=== PATIENT | male | born 1970 | race Caucasian/White ===

== ENCOUNTER 2024-09-29 12:39 | Emergency (ER) | payer OTHER, SELFPAY ==
--- NOTE | 2024-09-29 12:41 | ED_ITS ---
HPI - Female Genitourinary General Stated complaint: Bladder Infection Time Seen by Provider: 09/29/24 12:40 Source: patient Mode of arrival: ambulatory Limitations: no limitations History of Present Illness HPI Narrative: Jean is a 54-year-old male patient presenting to the clinic today with complaints of a possible bladder infection. He reports he started having burning, frequency, and urgency with urination that started this morning and prior to coming into the clinic started having gross hematuria. He denies any fevers, chills, body aches. No flank pain or lower abdominal pain. Blood pressure was elevated in the clinic-patient has not taken his blood pressure medications in 2 months. Related Data Home Medications ?Medication ?Instructions ?Recorded ?Confirmed ?Last Taken ?Type No Home Medications 09/29/24 09/29/24 U nknown History Allergies Allergy/AdvReac Type Severity Reaction Status Date / Time No Known Allergies Allergy Verified 09/29/24 12:59 Review of Systems Review of Systems: Pertinent positives per HPI. Patient denies any fever, chills, rash, headache, visual changes, dizziness, cough, runny nose, sore throat, shortness of breath, chest pain, palpitations, nausea, vomiting, diarrhea, constipation, abdominal pain PMFSH Comments At the time of my signature, I reviewed and agree with the nursing past medical, surgical, social, and family history. There is no relevant family history pertinent to the patient complaint. Exam Narrative: General: Well-developed, well nourished, in no apparent distress. Head: Normocephalic, atraumatic. Cardio: Regular rate and rhythm, s1 and s2 normal, no murmur appreciated. Resp: Clear to auscultation bilaterally, no rhonchi, rales, wheezing or rubs. Abdomen: Soft, pliable, bowel sounds present in all quadrants, non-tender to palpation, no organomegly, no CVAT tenderness. : Deferred Course Course Emergency Course: Portions of this record may have been created with voice recognition software. Level of Care: Express Care Visit Vital Signs Vital signs: Vital signs reviewed MDM - Female Genitourinary MDM Narrative Medical decision making narrative: At the time of visit patient is resting comfortably on the exam table. Patient appears to be nontoxic. Complaints of a possible bladder infection. He reports he started having burning, frequency, and urgency with urination that started this morning and prior to coming into the clinic started having gross hematuria. He denies any fevers, chills, body aches. No flank pain or lower abdominal pain Labs: Urine has gross hematuria-UA dip skewed due to the amount of blood in the urine. Plan: I suspect patient has UTI symptoms with gross hematuria. Patient hypertensive in the clinic- has not taken his blood pressure medications in 2 months. History of kidney stones in the past. Recommend transfer to the ER for further evaluation. Patient agrees to transfer and would like to go to [place] [facility]. Contacted Dr. Arce at [facility] and he accepts patient for transfer. Differential Diagnosis Differential diagnosis: Likely urinary tract infection, cystitis and other (Gross hematuria) Discharge Plan Discharge Clinical Impression: Gross hematuria, Dysuria Patient Disposition: Acute Care Hospital Condition: Stable Instructions: Antibiotic Form Additional Instructions: Increase fluids and stay well hydrated Wipe front to back. May use wet wipes. Avoid tub baths If sexually active- pee before and after intercourse. Wear cotton panties Avoid tight clothing up against the genitals Follow up with your PCP in 1 week if symptoms persist. Patient Language: Belarusian Prescriptions: No Action No Home Medications Follow-up/Referrals: UNKNOWN,DOCTOR [Non-Staff] Time of Disposition: 13:00 Quality NIHSS Nursing Documentation ED NIHSS nursing documentation: reviewed/agree
--- OUTSIDE RECORDS SUMMARY | 2024-09-29 12:45 | XMS_ITS | Clinical Summary ---
Author Organization [facility] Address [address] [place] [address] Phone Care Team Providers Care Roller Die Cutting Machine Operator Name Role Phone Romana Disla NP Primary Care Provider + [phone] Allergies No known active allergies Medications rosuvastatin (CRESTOR) 20 MG tabletIndications:H yperlipidemia, unspecified hyperlipidemia type Take one tablet (20 mg total) by mouth one (1) time a day 90 tablet 3 4 Active irbesartan (AVAPRO) 300 MG tabletIndications:E ssential hypertension Take one tablet (300 mg total) by mouth nightly 90 tablet 3 4 Active pantoprazole (PROTONIX) [address] tabletIndications:G ERD without esophagitis Take one tablet (40 mg total) by mouth one (1) time a day 90 tablet 3 4 Active carvediloL (COREG) 25 MG tabletIndications:E ssential hypertension Take one tablet (25 mg total) by mouth in the morning and one tablet (25 mg total) in the evening. Take with meals. 180 tablet 3 4 Active Active Problems Patient Care Coordination No te Formatting of this note migh t be different from the original. EGD/Colonoscopy 01/25/2022 at 8:00 AM at [facility]. Prep instructions given to and reviewed with patient. Understanding voiced. Problem Noted Date Diagnosed Date Osteoarthritis 04/18/2023 Gastroesophageal reflux dise ase with esophagitis, unspecified whether hemorrhage 01/25/2022 Epigastric pain 11/19/2021 Overview (11/19/2021): Added automatically from request for surgery [id number] Prediabetes 09/09/2021 Left shoulder pain 09/09/2021 GERD without esophagitis 04/12/2021 Testicular swelling 02/17/2021 Nevus 12/24/2016 Hospital discharge follow-up 12/21/2016 Hyperlipidemia 12/21/2016 Acute appendicitis 12/08/2016 Malaise and fatigue 04/15/2016 Colon cancer screening 04/15/2016 Tachycardia 04/15/2016 Right shoulder pain 11/18/2015 Health care maintenance 06/10/2015 Essential hypertension 06/10/2015 Lung nodule Resolved Problems Problem Noted Date Diagnosed Date Resolved Date Diverticulitis of colon 04/23/201312/09 Family History Medical History Relation Name Comments Alcohol abuse Father Savage spencer sr Cancer Father Savage spencer sr Prostate cancer Father Savage spencer sr Throat cancer Father Savage spencer sr Alcohol abuse Mother Radha dang Melanoma Mother Radha dang Relation Name Status Comments Brother 1 Alive Brother 2 Alive Father Savage spencer sr Alive Mother Radha dang Alive Sister Alive Social History Tobacco Use Types Packs/Day Years Used Date Smoking Tobacco: Every Day Cigarettes 1 23 Smokeless Tobacco: Never Tobacco Cessation:Ready to Q uit: Not Asked; Counseling Given: Not Answered Alcohol Use Standard Drinks/Week Comments Yes 0 (1 standard drink = 0.6 oz pur e alcohol) rarely PHQ-2 Answer Date Recorded PHQ-2 Score 0 01/03/2023 Intimate Partner Safety Answer Date Rec orded Intimate Partner Safety Not At Risk 04/08/19 24 Intimate Partner Safety Not At Risk 04/08/19 24 Intimate Partner Safety Not At Risk 04/08/19 24 Intimate Partner Safety Not At Risk 04/08/19 24 Intimate Partner Safety Not At Risk 04/08/19 24 Sex and Gender Information Value Date Recorded Sex Assigned at Not on file Legal Sex Male 4:10 PM ASSEMBLY ROOM SUPERVISOR Gender Identity Not on file Sexual Orientation Not on file Last Filed Vital Signs Vital Sign Reading Time Taken Comments Blood Pressure 150/88 03/28/2024 11:08 AM ASSEMBLY ROOM SUPERVISOR Pulse 96 03/28/2024 11:07 AM ASSEMBLY ROOM SUPERVISOR Temperature 36.3 C (97.3 F) 03/28/2024 11:07 AM ASSEMBLY ROOM SUPERVISOR Respiratory Rate 16 01/25/2022 11:39 AM ASSEMBLY ROOM SUPERVISOR Oxygen Saturation 97% 03/28/2024 11:07 AM ASSEMBLY ROOM SUPERVISOR Inhaled Oxygen Concentration - - Weight 98.9 kg (218 lb) 03/28/2024 11:07 AM ASSEMBLY ROOM SUPERVISOR Height 172.7 cm (5' 8) 03/28/2024 11:07 AM ASSEMBLY ROOM SUPERVISOR Body Mass Index 33.15 03/28/2024 11:07 AM ASSEMBLY ROOM SUPERVISOR Plan of Treatment Health Maintenance Due Date Last Done Comments Colorectal Cancer Screening Annual FOBT/FIT Test 1971 Colorectal Cancer Screening Cologuard 1971 Colorectal Cancer Screening Flex Sigmoidoscopy 1971 DTap/Tdap/Td Vaccines (1 - Tdap) 1990 Pneumococcal Vaccine Age 50+ (1 of 2 - PCV) 1990 Zoster Vaccine (Shingles) (1 of 2) 2021 Colonoscopy Every 6 Months 07/26/2022 01/25/2022 Annual Depression Screening 2024 01/03/2023, 0 02/17/2021 Annual Physical 2024 01/03/2023, 04/15/2016 Lung Cancer Screening 01/11/2024 01/10/2023 , 10/26/2013, 03/05/2013 Flu Vaccine (#1) 10/08/2024 Colorectal CA Screen 10 Year Colonoscopy 01/26/2032 01/25/2022 Colorectal Cancer Screening 01/26/2032 01/25/2022 01/25/2022 01/25/2022 01/25/2022 01/25/2022 01/25/2022 Hepatitis C Antibody Screen Completed 01/03/2023 Procedures Procedure Name Priority Date/Time Associated Diagnosis Comments CT LDCT LUNG CANCER SCREENING Routine 01/10/2023 8:28 AM ASSEMBLY ROOM SUPERVISOR Cigarette nicotine dependence with other nicotine-induced disorder History of tobacco use HEPATITIS C VIRUS ANTIBODY Routine 01/03/2023 11:38 AM ASSEMBLY ROOM SUPERVISOR Need for hepatitis C screening test from Last 3 Months or Most Recently Relevant to Health Maintenance Results * CT LDCT Lung Cancer Screening (01/10/2023 8:28 AM ASSEMBLY ROOM SUPERVISOR) Anatomical Region Laterality Modality Chest Computed Tomogra phy 01/10/2023 10:0 7 AM ASSEMBLY ROOM SUPERVISOR Impressions 01/10/2023 10:15 AM ASSEMBLY ROOM SUPERVISOR IMPRESSION: ACR Required Coding: Lung RAD: Lung Rad 2S - Benign Recommendation:Annual LDCT screening Important incidental findings: Urinary artery disease For detailed description of ACR LungRADS categories please refer to: www.acr.org/Quality-Safety/Resources/LungRADS If you (or your patient) are a current smoker and would like assistance to quit smoking, the following resources are simple and free: www.[employer] https://ZenCard.gov https://smokefree.gov/qbycwatjr-lhwg-yuhkfmrjl-programs The images in this case were personally reviewed by the radiologist named below, and the report reflects his/her interpretation. Narrative 01/10/2023 10:15 AM ASSEMBLY ROOM SUPERVISOR INDICATION: High Risk Lung Cancer Screen. According to the electronic medical record, patient has a 62-[id number]-[id number] smoking history. COMPARISON: No existing relevant imaging studies are available TECHNIQUE: Non-contrast low dose helical acquisition through the lungs. Sliding slab MIP reformats. MPR sagittal reformats. Dose reduction techniques were utilized for this exam including automated exposure control, adjustments to mA and/or kV according to patient's size, and the use of iterative reconstruction techniques. FINDINGS: Global pulmonary findings: None Additional focal findings: Right upper lobe: No additional findings. Right middle lobe: No additional findings. Right lower lobe: No additional findings. Left upper lobe: Stable scarring of the lingula. Left lower lobe: No additional findings. Chest Wall/Mediastinum/Pericardium: Coronary artery disease. Ectasia of the aortic root measuring 4.0 cm. Central airways: No significant findings. Pleura: No significant findings. Visualized upper Abdomen: Diverticulosis. Procedure Note Arturo Verde MD - 01/10/2023 INDICATION: High Risk Lung Cancer Screen. According to the electronic medical record, patient has a 64-lbhc-eryf smoking history. COMPARISON: No existing relevant imaging studies are available TECHNIQUE: Non-contrast low dose helical acquisition through the lungs. Sliding slab MIP reformats. MPR sagittal reformats. Dose reduction techniques were utilized for this exam including automated exposure control, adjustments to mA and/or kV according to patient's size, and the use of iterative reconstruction techniques. FINDINGS: Global pulmonary findings: None Additional focal findings: Right upper lobe: No additional findings. Right middle lobe: No additional findings. Right lower lobe: No additional findings. Left upper lobe: Stable scarring of the lingula. Left lower lobe: No additional findings. Chest Wall/Mediastinum/Pericardium: Coronary artery disease. Ectasia of the aortic root measuring 4.0 cm. Central airways: No significant findings. Pleura: No significant findings. Visualized upper Abdomen: Diverticulosis. IMPRESSION: ACR Required Coding: Lung RAD: Lung Rad 2S - Benign Recommendation:Annual LDCT screening Important incidental findings: Urinary artery disease For detailed description of ACR LungRADS categories please refer to: www.acr.org/Quality-Safety/Resources/LungRADS If you (or your patient) are a current smoker and would like assistance to quit smoking, the following resources are simple and free: www.Urban[employer] https://ZenCard.gov https://ZenCard.gov/tyxtomrlx-fjia-bmsbghdot-programs The images in this case were personally reviewed by the radiologist named below, and the report reflects his/her interpretation. us Romana Disla NP CT IMG ORDERABLES Final Resu lt * Hepatitis C Virus Antibody (01/03/2023 11:38 AM ASSEMBLY ROOM SUPERVISOR) Hepatitis C Virus Antibody Negative Negative 2023 6:59 AM ASSEMBLY ROOM SUPERVISOR [facility] Comment: Unless otherwise indicated, all testing performed at: [facility] [address] [place] [address] Trouble Dispatcher: Lynnette Baker M.D. [facility]# [id number] Blood Venipuncture / Unknown 01/03/2023 11:38 AM ASSEMBLY ROOM SUPERVISOR 01/03/2023 11:39 AM ASSEMBLY ROOM SUPERVISOR us Romana Disla NP LAB BLOOD ORDERABLES Final R esult [facility] [address] [place] [id number], [place] [phone] from Last 3 Months or Most Recently Relevant to Health Maintenance Insurance [employer] Advance Directives For more information, please contact: [phone] (7AM - 5PM [facility], 7 days a week) * Full Code (Latest Code Status on File) Date Activated Date Inactivated Comments 12/08/2016 2:54 PM 12/09/2016 4:14 PM * Full Code Date Activated Date Inactivated Comments 12/08/2016 9:44 AM 12/08/2016 2:54 PM Care Teams Roller Die Cutting Machine Operator Relationship Specialty Start Date End Date Romana Disla NP [address] [place] [id number] PCP - General Nurse Practitioner 01/03/23
--- OUTSIDE RECORDS SUMMARY | 2024-09-29 12:46 | XMS_ITS | Encounter Summary ---
Author Organization [facility] Address [address] [place] [address] Phone Care Team Providers Care Bottom Turner Name Role Phone Ida Zamarripa CHAIRMAN CEO Primary Care Provider [phone] Mk Velez MD Primary Care Provider [phone] Romana Disla CHAIRMAN CEO Primary Care Provider + [phone] Encounter Details Date Type Department Care Team (Late st Contact Info) Description 06/03/2016 Documentation [facility] [place] Neuro-Sleep Disorder [address] [facility] [place], [place] [id number] Richy Upton [address] [facility] [place], [place] [id number] Social History Tobacco Use Types Packs/Day Years Used Date Smoking Tobacco: Every Day Cigarettes 1 23 Alcohol Use Standard Drinks/Week Comments Yes 0 (1 standard drink = 0.6 oz pur e alcohol) Sex and Gender Information Value Date Recorded Sex Assigned at Not on file Legal Sex Male 4:10 PM SOUND EQUIPMENT MECHANIC Gender Identity Not on file Sexual Orientation Not on file documented as of this encounter Plan of Treatment Not on file documented as of this encounter Visit Diagnoses Not on filedocumented in this encounter Additional Health Concerns Infection Onset Date Last Indicated Resolved Time COVID-19: Pending 03/02/2021 03/02/2021 03/02/2021 9:33 PM SOUND EQUIPMENT MECHANIC Assessment Noted Time PHQ-9 Depression Total Score: 0 06/01/19 17 8:32 PM CDT A fall risk assessment has been complete d for the patient 05/31/2016 7:31 AM CDT documented as of this encounter Care Teams Bottom Turner Relationship Specialty Start Date End Date Ida Zamarripa, CHAIRMAN CEO [address], [address] [place] [address] PCP - General Family Medicine 09/28/16 02/02/21 Mk Velez MD [address] [facility] [place], [address] PCP - General Family Medicine 02/03/21 01/02/23 Romana Disla, JANICE [address] [facility] [address] [place], [address] PCP - General Nurse Practitioner 01/03/23 documented as of this encounter
--- OUTSIDE RECORDS SUMMARY | 2024-09-29 12:46 | XMS_ITS | Encounter Summary ---
Author Organization [facility] Address [address] [place] [address] Phone Care Team Providers Care Toolmaker Helper Name Role Phone Ida Zamarripa GAME TRAPPER Primary Care Provider [phone] Mk Velez MD Primary Care Provider [phone] Romana Disla GAME TRAPPER Primary Care Provider + [phone] Encounter Details Date Type Department Care Team (Late st Contact Info) Description 06/03/2016 Documentation [facility] [place] Neuro-Sleep Disorder [address] [facility] [place], [place] [id number] Richy Upton [address] [facility] [place], [place] [id number] Social History Tobacco Use Types Packs/Day Years Used Date Smoking Tobacco: Every Day Cigarettes 1 23 Alcohol Use Standard Drinks/Week Comments Yes 0 (1 standard drink = 0.6 oz pur e alcohol) Sex and Gender Information Value Date Recorded Sex Assigned at Not on file Legal Sex Male 4:10 PM SEPTIC TECHNICIAN Gender Identity Not on file Sexual Orientation Not on file documented as of this encounter Plan of Treatment Not on file documented as of this encounter Visit Diagnoses Not on filedocumented in this encounter Additional Health Concerns Infection Onset Date Last Indicated Resolved Time COVID-19: Pending 03/02/2021 03/02/2021 03/02/2021 9:33 PM SEPTIC TECHNICIAN Assessment Noted Time PHQ-9 Depression Total Score: 0 06/01/19 17 8:32 PM CDT A fall risk assessment has been complete d for the patient 05/31/2016 7:31 AM CDT documented as of this encounter Care Teams Toolmaker Helper Relationship Specialty Start Date End Date Ida Zamarripa, GAME TRAPPER [address] [place] [address] PCP - General Family Medicine 09/28/16 02/02/21 Mk Velez MD [address] [facility] [place], [address] PCP - General Family Medicine 02/03/21 01/02/23 Romana Disla, JANICE [address] [facility] [address] [place], [address] PCP - General Nurse Practitioner 01/03/23 documented as of this encounter
[2024-09-29 12:49] VITALS: BP 164/118; PULSE 105; RESP 18; TEMP 36.4; O2SAT 99
[2024-09-29 12:58] LABS: EDUAAPPEAR Cloudy; EDUABILI 3+ (Negative); EDUABLOOD 3+ (Negative); EDUACOLOR1 Red; EDUAGLUCOSE Negative (Negative); EDUAKETONE 1+ (Negative); EDUALEUKO 3+ (Negative); EDUANITRATE Positive (Negative); EDUAPH 6.0; EDUAPROTEIN 3+ (Negative); EDUASPGRAVITY 1.020; EDUAUROBILI 2.0
== END 2024-09-29 13:05 | disposition short-term general hospital (02) ==
PROVIDERS: Emergency Provider Nurse Practitioner Family
DX: R31.0 Gross hematuria (principal); R30.0 Dysuria; I10 Essential (primary) hypertension; E78.00 Pure hypercholesterolemia, unspecified; K21.9 Gastro-esophageal reflux disease without esophagitis; Z86.16 Personal history of COVID-19; Z98.52 Vasectomy status
CPT/HCPCS: 81003; 99202; G0463

== ENCOUNTER 2024-09-29 13:24 | Emergency (ER) | payer OTHER, SELFPAY ==
[2024-09-29] VITALS (7 sets, daily range): BP systolic 173–193; BP diastolic 103–110; PULSE 108; RESP 20; TEMP 36.4; O2SAT 98–100
--- NOTE | ~2024-09-29 | CT_ITS ---
EXAMINATION: CT abdomen pelvis wo con DATE: 09/29/2024 14:28 INDICATION: Flank pain and hematuria TECHNIQUE: Computed tomography (CT) of the abdomen and pelvis was performed without intravenous contrast. The dose-length product was 312.98 mGy-cm. Automated exposure control and iterative reconstruction technique were employed. COMPARISON: None. FINDINGS: Lung bases unremarkable. Heart size normal. No significant pleural or pericardial effusion. The liver, spleen, pancreas, adrenal glands and kidneys are unremarkable. Gallbladder is present. Nonobstructive bowel gas pattern. Colonic diverticulosis without evidence for diverticulitis. No abnormal pelvic masses or fluid collections. There is a right hydrocele. Nonobstructive bowel pattern. No free air or free fluid. No renal/ureteral stones or hydronephrosis. No acute osseous abnormality. IMPRESSION: 1. No acute abdominal abnormality. Reviewed, dictated and finalized at location O.
--- OUTSIDE RECORDS SUMMARY | 2024-09-29 13:26 | XMS_ITS | Encounter Summary ---
Author Organization [facility] Address [address] [place] [address] Phone Care Team Providers Care Desk Operator Name Role Phone Ida Zamarripa NISSAN SALES CONSULTANT Primary Care Provider [phone] Mk Velez MD Primary Care Provider [phone] Romana Disla NISSAN SALES CONSULTANT Primary Care Provider + [phone] Encounter Details Date Type Department Care Team (Late st Contact Info) Description 06/03/2016 Documentation [facility] [place] Neuro-Sleep Disorder [address] [facility] [place], [place] [id number] Richy Upton [address] [facility] [place], [place] [id number] Social History Tobacco Use Types Packs/Day Years Used Date Smoking Tobacco: Every Day Cigarettes 1 23 Alcohol Use Standard Drinks/Week Comments Yes 0 (1 standard drink = 0.6 oz pur e alcohol) Sex and Gender Information Value Date Recorded Sex Assigned at Not on file Legal Sex Male 4:10 PM REFRIGERATION INSULATOR Gender Identity Not on file Sexual Orientation Not on file documented as of this encounter Plan of Treatment Not on file documented as of this encounter Visit Diagnoses Not on filedocumented in this encounter Additional Health Concerns Infection Onset Date Last Indicated Resolved Time COVID-19: Pending 03/02/2021 03/02/2021 03/02/2021 9:33 PM REFRIGERATION INSULATOR Assessment Noted Time PHQ-9 Depression Total Score: 0 06/01/19 17 8:32 PM CDT A fall risk assessment has been complete d for the patient 05/31/2016 7:31 AM CDT documented as of this encounter Care Teams Desk Operator Relationship Specialty Start Date End Date Ida Zamarripa, NISSAN SALES CONSULTANT [address] [place] [address] PCP - General Family Medicine 09/28/16 02/02/21 Mk Velez MD [address] [facility] [place], [address] PCP - General Family Medicine 02/03/21 01/02/23 Romana Disla, JANICE [address] [facility] [address] [place], [address] PCP - General Nurse Practitioner 01/03/23 documented as of this encounter
--- OUTSIDE RECORDS SUMMARY | 2024-09-29 13:27 | XMS_ITS | Encounter Summary ---
Author Organization [facility] Address [address] [place] [address] Phone Care Team Providers Care Cash Register Servicer Name Role Phone Ida Zamarripa INTERNATIONAL EDITORIAL PRODUCER Primary Care Provider [phone] Mk Velez MD Primary Care Provider [phone] Romana Disla INTERNATIONAL EDITORIAL PRODUCER Primary Care Provider + [phone] Encounter Details Date Type Department Care Team (Late st Contact Info) Description 06/03/[address] [facility] [place] Neuro-Sleep Disorder [address] [facility] [place], [place] [id number] Richy Upton [address] [facility] [place], [place] [phone] Social History Tobacco Use Types Packs/Day Years Used Date Smoking Tobacco: Every Day Cigarettes 1 23 Alcohol Use Standard Drinks/Week Comments Yes 0 (1 standard drink = 0.6 oz pur e alcohol) Sex and Gender Information Value Date Recorded Sex Assigned at Not on file Legal Sex Male 4:10 PM OIL SPOT WASHER Gender Identity Not on file Sexual Orientation Not on file documented as of this encounter Plan of Treatment Not on file documented as of this encounter Visit Diagnoses Not on filedocumented in this encounter Additional Health Concerns Infection Onset Date Last Indicated Resolved Time COVID-19: Pending 03/02/2021 03/02/2021 03/02/2021 9:33 PM OIL SPOT WASHER Assessment Noted Time PHQ-9 Depression Total Score: 0 06/01/19 17 8:32 PM CDT A fall risk assessment has been complete d for the patient 05/31/2016 7:31 AM CDT documented as of this encounter Care Teams Cash Register Servicer Relationship Specialty Start Date End Date Ida Zamarripa, INTERNATIONAL EDITORIAL PRODUCER [address], [address] [place] [address] PCP - General Family Medicine 09/28/16 02/02/21 Mk Velez MD [address] [facility] [place], [address] PCP - General Family Medicine 02/03/21 01/02/23 Romana Disla, JANICE [address] [facility] [address] [place], [address] PCP - General Nurse Practitioner 01/03/23 documented as of this encounter
[2024-09-29 14:03] LABS: Hematocrit 51.5 % (42.0-52.0); Hemoglobin 16.9 g/dL (14.0-18.0); Immature Granulocyte Percent A 0.3 % (0-0.5); Lymphocytes Absolute Auto 1.67 K/mm3 (0.9-3.2); Mean Corpuscular HGB Conc 32.8 g/dl (32-36); Mean Corpuscular Hemoglobin 29.2 pg (26-34); Mean Corpuscular Volume 88.9 fl (80-100); Nucleated Red Blood Cells Absolute Auto 0.000 K/mm3 (0.0-0.012); Nucleated Red Blood Cells Perc 0.0 % (0.0-0.2); Platelet Count Result 205 k/mm3 (150-375); Red Blood Count 5.79 M/mm3 (4.6-6.20); White Blood Count 14.5 K/mm3 (4.5-10.0)
[2024-09-29 14:11] LABS: Alanine Aminotransferase 34 U/L (6-50); Albumin Level 4.7 g/dL (3.5-5.1); Alkaline Phosphatase 95 U/L (38-126); Anion Gap 7 mmol/L (4-12); Aspartate Amino Transferase 36 U/L (17-59); Bilirubin,Total 1.1 mg/dL (0.2-1.3); Blood Urea Nitrogen 14 mg/dL (9-20); Calcium 9.2 mg/dL (8.4-10.2); Carbon Dioxide 28 mmol/L (22-30); Chloride 101 mmol/L (98-107); Estimated CRCL calculation 92 ml/min; Estimated Glomerular Filt Rate > 60; Glucose 104 mg/dL (65-110); Potassium 4.2 mmol/L (3.4-5.0); Sodium 136 mmol/L (137-145); Total Protein 8.1 g/dL (6.3-8.2)
[2024-09-29 14:20] LABS: Appearance Urine Turbid (Clear)
[2024-09-29 14:21] LABS: Glucose Urine UA Negative (Negative); Specific Grav Ur >= 1.030 (1.001-1.035)
[2024-09-29 14:22] LABS: Add Urine Microscopic? YES; Leukocyte Esterase Ur Negative LEU/UL (Negative); Nitrate Urine Negative (Negative)
--- NOTE | 2024-09-29 14:42 | ED.MALEGU ---
HPI - Male Genitourinary General Chief complaint: Urogenital-Male Stated complaint: hematuria w/ clots, no thinners Time Seen by Provider: 09/29/24 14:06 History of Present Illness HPI Narrative: 54-year-old male presents with blood in his urine and passing clots that started this morning. Patient states he is having bladder pressure and polyuria. Patient states he had kidney stones 30+ years ago with no interventions. Patient complaining of lower back pain but denies flank pain. Patient denies any chance of STDs. No other complaints Onset (ago): hour(s) (Six) Related Data Allergies Allergy/AdvReac Type Severity Reaction Status Date / Time No Known Allergies Allergy Verified 09/29/24 13:28 Review of Systems Review of Systems: A 10 system review of systems was completed on the patient and is negative except for what is stated in the HPI. Nursing and ancillary documentation was reviewed. Exam Narrative: GENERAL: Well-appearing, well-nourished, and in no acute distress. HEAD: Normocephalic, atraumatic. EYES: PERRLA and EOMI. ENT: Nares clear, no rhinorrhea or epistaxis. Mucous membranes moist. NECK: Supple. CHEST: Clear to auscultation. No respiratory distress. HEART: Regular rate and rhythm. No murmur heard. Normal peripheral pulses. ABDOMEN: Soft, nontender, nondistended, normal active bowel sounds. EXTREMITIES: Normal range of motion. No edema. SKIN: Warm, dry, no rash. NEURO: No focal deficits. Alert and oriented x3. PSYCH: Normal mood and affect. BACK: tenderness to lower back Course Course Emergency Course: Will get labs, urine, CT abdomen pelvis without contrast to rule out kidney stone Patient has elevated blood pressure. Patient states he just moved to the area has been out of his blood pressure medicine for 2 months. Patient states he does not have a primary care. Requesting referral to a primary care doctor Reevaluation(s) Reevaluation #1: Patient states she is feeling better Date: 09/29/24 Time: 15:45 Vital Signs Vital signs: Vital Signs Temperature 36.4 C 09/29/24 13:30 Pulse Rate 108 H 09/29/24 13:30 Respiratory Rate 20 09/29/24 13:30 Blood Pressure 193/110 H 09/29/24 13:30 Pulse Oximetry 99 09/29/24 13:30 Oxygen Delivery Room Air 09/29/24 13:30 Temperature 36.4 C 09/29/24 13:30 Pulse Rate 108 H 09/29/24 13:30 Respiratory Rate 20 09/29/24 13:30 Blood Pressure 173/103 H 09/29/24 15:55 Pulse Oximetry 98 09/29/24 14:47 Oxygen Delivery Room Air 09/29/24 13:30 MDM - Male Genitourinary MDM Narrative Medical decision making narrative: Patient's labs showed elevated white count with no signs of infection. Patient care shows large amount of blood. Patient likely passed a kidney stone. CT scan was negative. Urine is noninfected. We will treat with Toradol and referred to Urology Differential Diagnosis Differential diagnosis: Likely urinary tract infection, prostatitis and other (Kidney stone) Lab Data 09/29/24 13:51 09/29/24 13:51 Labs: Lab Results 09/29/24 09/29/24 Range/Units 13:51 14:51 WBC 14.5 H (4.5-10.0) K/mm3 RBC 5.79 (4.6-6.20) M/mm3 Hgb 16.9 (14.0-18.0) g/dL Hct 51.5 (42.0-52.0) % MCV 88.9 (80-100) fl MCH 29.2 (26-34) pg MCHC 32.8 (32-36) g/dl RDW 13.2 (11.5-14.5) % Plt Count 205 (150-375) k/mm3 MPV 9.9 (7.4-10.4) fl Immature Gran % (Auto) 0.3 (0-0.5) % Neut % (Auto) 81.8 H (45.5-73.1) % Lymph % (Auto) 11.5 L (18.3-44.2) % Phelps % (Auto) 4.8 (2.6-8.5) % Eos % (Auto) 1.2 (0-4.4) % Baso % (Auto) 0.4 (0.2-1.2) % Lymph # (Auto) 1.67 (0.9-3.2) K/mm3 Phelps # (Auto) 0.7 H (0.1-0.6) K/mm3 Eos # (Auto) 0.2 (0-0.3) K/mm3 Baso # (Auto) 0.1 (0.0-0.1) K/mm3 Abs Immat Gran (auto) 0.05 H (0.00-0.031) K/mm3 Absolute Neuts (auto) 11.9 H (1.3-6.7) K/mm3 Absolute Nucleated RBC 0.000 (0.0-0.012) K/mm3 Nucleated RBC % 0.0 (0.0-0.2) % Sodium 136 L (137-145) mmol/L Potassium 4.2 (3.4-5.0) mmol/L Chloride 101 (98-107) mmol/L Carbon Dioxide 28 (22-30) mmol/L Anion Gap 7 (4-12) mmol/L BUN 14 (9-20) mg/dL Creatinine 0.91 (0.7-1.3) mg/dL Estim Creat Clear Calc 92 ml/min Estimated GFR > 60 (59 - ) Glucose 104 (65-110) mg/dL Lactic Acid 0.9 (0.7-2.0) mmol/L Calcium 9.2 (8.4-10.2) mg/dL Total Bilirubin 1.1 (0.2-1.3) mg/dL AST 36 (17-59) U/L ALT 34 (6-50) U/L Alkaline Phosphatase 95 (38-126) U/L Total Protein 8.1 (6.3-8.2) g/dL Albumin 4.7 (3.5-5.1) g/dL Prostate Specific Ag 2.3 (< OR = 4.0) ng/mL Urine Color Red H (Yellow) Urine Appearance Turbid H (Clear) Urine pH 6.5 (5.0-9.0) Ur Specific [place] >= 1.030 (1.001-1.035) Urine Protein 3+ H (Negative) mg/dL Urine Glucose (UA) Negative (Negative) mg/dL Urine Ketones Negative (Negative) mg/dL Ur Blood (Man) 2+ H (Negative) Urine Nitrate Negative (Negative) Urine Bilirubin Negative (Negative) Urine Urobilinogen 0.2 (<2.0) mg/dL Leukocyte Esterase Rfl Negative (Negative) SERVANDO/UL Urine RBC >100 H (0-2) /hpf Urine WBC 0-5 (0-3) /hpf Ur Squamous Epith Cells None seen (Few) /hpf Urine Bacteria Trace (None) /hpf Imaging Data Radiologist's impression: Negative CT exam Discharge Plan Discharge Clinical Impression: Hematuria, Kidney stone Patient Disposition: Home Condition: Improved Instructions: Antibiotic Form, Kidney Stones (ED), Hematuria (ED), Hypertension (ED) Additional Instructions: TAKE MEDICATIONS PRESCRIBED INCREASE CLEAR FLUIDS FOLLOW-UP WITH UROLOGY Patient Language: Polish Prescriptions: New ketorolac 10 mg tablet 10 mg PO Q6H PRN (Reason: pain) Qty: 14 0RF Rx Instructions: maximum total duration of 5 days from all oral, intranasal, or parenteral formulations valsartan 160 mg tablet 160 mg PO DAILY Qty: 14 0RF Follow-up/Referrals: PHYSICIAN,SOFTWARE QUALITY ENGINEER [Primary Care Provider, Internal Medicine] Terrence Moreland MD [Physician, Family Practice] - 2 Days Time of Disposition: 16:10
[2024-09-29] MEDS: KETOROLAC 30 MG/ML VIAL (*BKC) IV PUSH (14:58)
[2024-09-29] MEDS: SODIUM CHLORIDE 0.9% IV 1,000 ML 999 ML IV CONT (14:58)
[2024-09-29 15:57] LABS: Prostate Specific Antigen 2.3 ng/mL (< OR = 4.0)
== END 2024-09-29 16:25 | disposition home or self-care (01) ==
PROVIDERS: Emergency Medicine; Emergency Provider Nurse Practitioner Family
DX: N20.0 Calculus of kidney (principal); R31.9 Hematuria, unspecified; I10 Essential (primary) hypertension; Z87.442 Personal history of urinary calculi
CPT/HCPCS: 36415; 74176; 80053; 81001; 83605; 84153; 85025; 96361; 96374; 99284; J1885; J7030

== ENCOUNTER 2024-10-02 05:27 | Emergency (ER) | payer OTHER, SELFPAY ==
[2024-10-02 05:35] VITALS: BP 214/105; PULSE 118; RESP 17; TEMP 37; O2SAT 100
[2024-10-02 05:55] LABS: Add Urine Microscopic? YES; Appearance Urine Cloudy (Clear); Glucose Urine UA Negative (Negative); Leukocyte Esterase Ur 3+ LEU/UL (Negative); Nitrate Urine Positive (Negative); Non Pathogenic Casts 0-2; Specific Grav Ur 1.014 (1.001-1.035)
[2024-10-02] MEDS: KETOROLAC 30 MG/ML VIAL (*BKC) 15 MG IM (06:00)
--- NOTE | 2024-10-02 06:18 | ED_ITS ---
HPI - General Adult General Chief complaint: Urogenital-Male Stated complaint: kidney stones - worsening pain, costa Time Seen by Provider: 10/02/24 05:29 History of Present Illness HPI narrative: Patient is a 54-year-old male who presents emergency department this evening complaining of increased urge to urinate and painful urination. Patient was recently seen our facility 2 days ago and had blood work and a CT scan which was performed for hematuria due to concern for possible kidney stone. CT revealed no acute process. Patient had mild hematuria and at that time it was presumed that maybe patient passed a kidney stone. He was sent home with Urology to follow up. Patient states that the hematuria persisted but now he is having dysuria as well. Denies any additional symptoms or concerns at this time. Related Data Allergies Allergy/AdvReac Type Severity Reaction Status Date / Time No Known Allergies Allergy Verified 10/02/24 05:41 Review of Systems Review of Systems: All systems are reviewed and are negative unless stated otherwise in the HPI. Exam Narrative: General: Alert, awake, afebrile, in no acute distress. HEENT: PERRL, no rhinorrhea, no post nasal drip, oropharynx clear. Neck: Trachea midline, no JVD, no lymphadenopathy. Cardiovascular: Regular rate and rhythm, no murmurs, rubs or gallops, no peripheral edema. Respiratory: Clear to auscultation bilaterally, no tachypnea, no wheezing, no rhonchi, no rubs, no respiratory distress. Abdomen: Soft, nontender, nondistended, no rebound, no guarding, no peritoneal signs. Musculoskeletal: No joint swelling or deformity, normal muscle tone. Skin: No rashes or petechia, no signs of infection. Psychiatric: Alert and oriented, normal behavior and judgment for situation. Neurological: Alert and oriented to person, place, and time. Follows all commands. No focal deficits, speech is clear and fluent. Course Vital Signs Vital signs: Vital Signs Temperature 98.6 F 10/02/24 05:35 Pulse Rate 118 H 10/02/24 05:35 Respiratory Rate 17 10/02/24 05:35 Blood Pressure 214/105 H 10/02/24 05:35 Pulse Oximetry 100 10/02/24 05:35 Oxygen Delivery Room Air 10/02/24 05:35 Temperature 98.6 F 10/02/24 05:35 Pulse Rate 118 H 10/02/24 05:35 Respiratory Rate 17 10/02/24 05:35 Blood Pressure 214/105 H 10/02/24 05:35 Pulse Oximetry 100 10/02/24 05:35 Oxygen Delivery Room Air 10/02/24 05:35 Medical Decision Making MDM Narrative Medical decision making narrative: The patient was evaluated by myself in the emergency department. History is obtained from patient who is an independent historian and physical exam was performed. External medical records were reviewed at this time. Patient was administered 15 mg of IM Toradol. Shared medical decision-making with the patient regarding repeating blood work and a CT scan was discussed at this time. Patient is in agreement that he does not feel as though that is indicated. I did inform him that we will repeat his urine to rule out a UTI. Urinalysis was obtained and did reveal urinary tract infection, nitrate positive. Patient was informed that he will be placed on an oral antibiotic and is in agreement. He was instructed that he needs to follow- up with urology and he is in agreement. Differential diagnosis considerations include kidney stones, urinary tract infection, STD. Comorbidities impacting this visit include none. I have evaluated and discussed social determinants of health with the patient that could potentially impact subsequent diagnosis and treatment plans. On repeat assessment of the patient, reevaluation revealed that the patient is doing well and is in no acute distress. Patient symptoms have improved since he arrived to our emergency department. Repeat vital signs were all reviewed and noted to be stable. Differential diagnosis and treatment plan were discussed with the patient at bedside. Patient agrees with discussion and after shared medical decision making agrees with discharge. All questions were answered to the patient's satisfaction. Patient will follow up with Urology in 3-5 days. A script for cephalexin was sent to patient's pharmacy to take as prescribed for his UTI. Patient was provided with strict return precautions and instructed to return to the emergency department if any new or worsening symptoms develop. The patient was discharged in stable condition. Vital Signs Vital Signs: Vital Signs Temperature 98.6 F 10/02/24 05:35 Pulse Rate 118 H 10/02/24 05:35 Respiratory Rate 17 10/02/24 05:35 Blood Pressure 214/105 H 10/02/24 05:35 Pulse Oximetry 100 10/02/24 05:35 Oxygen Delivery Room Air 10/02/24 05:35 Temperature 98.6 F 10/02/24 05:35 Pulse Rate 118 H 10/02/24 05:35 Respiratory Rate 17 10/02/24 05:35 Blood Pressure 214/105 H 10/02/24 05:35 Pulse Oximetry 100 10/02/24 05:35 Oxygen Delivery Room Air 10/02/24 05:35 Lab Data Labs: Lab Results 10/02/24 Range/Units 05:44 Urine Color Yellow (Yellow) Urine Appearance Cloudy H (Clear) Urine pH 5.5 (5.0-9.0) Ur Specific [employer] 1.014 (1.001-1.035) Urine Protein 2+ H (Negative) mg/dL Urine Glucose (UA) Negative (Negative) mg/dL Urine Ketones Negative (Negative) mg/dL Ur Blood (Man) 3+ H (Negative) Urine Nitrate Positive H (Negative) Urine Bilirubin Negative (Negative) Urine Urobilinogen 1.0 (<2.0) mg/dL Leukocyte Esterase Rfl 3+ H (Negative) SERVANDO/UL Urine RBC >100 H (0-2) /hpf Urine WBC >100 H (0-3) /hpf Ur Squamous Epith Cells None seen (Few) /hpf Urine Bacteria 2+ H /hpf Urine Casts 0-2 Discharge Plan Discharge Clinical Impression: Urinary tract infection Patient Disposition: Home Condition: Improved Instructions: Antibiotic Form, Urinary Tract Infection in Men (ED) Additional Instructions: Please follow-up with urologist your provided with within the next 3-5 days. Take the prescribed antibiotic as instructed for UTI. Return to the ED if any new or worsening symptoms develop. Patient Language: Chadian Prescriptions: New cephalexin 500 mg capsule 500 mg PO Q6H 7 Days Qty: 28 0RF No Action ketorolac 10 mg tablet 10 mg PO Q6H PRN (Reason: pain) Qty: 14 0RF Rx Instructions: maximum total duration of 5 days from all oral, intranasal, or parenteral formulations valsartan 160 mg tablet 160 mg PO DAILY Qty: 14 0RF Follow-up/Referrals: Kolton Weeks MD [Physician, Urology] - 3 Days PHYSICIAN,[facility] WORK[facility]IV[facility] [Primary Care Provider, Internal Medicine] Stand Alone Forms: Work/School Release IP Time of Disposition: 06:19
== END 2024-10-02 06:30 | disposition home or self-care (01) ==
PROVIDERS: Emergency Provider Emergency Medicine
DX: N39.0 Urinary tract infection, site not specified (principal)
CPT/HCPCS: 81001; 87086; 96372; 99283; J1885

== ENCOUNTER 2024-10-20 16:13 | Emergency (ER) | payer OTHER, SELFPAY ==
[2024-10-20] VITALS (9 sets, daily range): BP systolic 163–179; BP diastolic 110–117; PULSE 120–123; RESP 18; TEMP 36.7; O2SAT 97–100
--- NOTE | ~2024-10-20 | CT_ITS ---
[facility] EXAMINATION: CT abdomen pelvis w con COMPARISON: None HISTORY: Left flank, left abdominal pain TECHNIQUE: Axial images were obtained through the abdomen, pelvis post administration of IV contrast. Oral contrast was also administered. Coronal reconstruction images were obtained from the axial views. CT scan performed using dose optimization techniques including the following automated exposure control; adjustment of mA and/or kV; use of iterative reconstruction technique. Automatic exposure control was used to reduce radiation dose. Permanent radiation dose record is archived to PACS. FINDINGS: CT abdomen: LUNG BASES: The lung bases are clear. The visualized portions of the heart and pericardium are unremarkable. LIVER: Mild hepatic steatosis. SPLEEN: Unremarkable. KIDNEYS: Right Kidney: Unremarkable. No calculi. No hydronephrosis. Left Kidney: Unremarkable. No calculi. No hydronephrosis ADRENAL GLANDS: Unremarkable. PANCREAS: Unremarkable. GALLBLADDER/BILIARY: Unremarkable. No biliary dilatation. STOMACH AND ESOPHAGUS: Visualized stomach and esophagus within normal limits. BOWEL/MESENTERY: Moderate fecal content. Moderate diverticulosis. No colitis or diverticulitis. Appendix appendix normal. Mesentery minimal stranding may represent mild mesenteric panniculitis. No dilated small bowel loops. ADENOPATHY/RETROPERITONEUM: No lymphadenopathy. AORTA/VASCULATURE: Normal caliber aorta. FREE FLUID OR FREE AIR: None. CT pelvis: SOLID ORGANS/REPRODUCTIVE: Prostate enlarged correlate with PSA, there is stranding noted around the seminal vesicles. BLADDER: Circumferential thickening of the bladder wall. OSSEOUS STRUCTURES: No acute osseous abnormality.No suspicious lesions. OVERLYING SOFT TISSUES: Unremarkable. IMPRESSION: Severe cystitis. Probable prostatitis. Reviewed, dictated and finalized at location A.
--- OUTSIDE RECORDS SUMMARY | 2024-10-20 16:15 | XMS_ITS | Encounter Summary ---
Author Organization [facility] Address [address] [place] [address] Phone Care Team Providers Care Educational Aide Name Role Phone Ida Zamarripa PIPELINES MANAGER Primary Care Provider [phone] Mk Velez MD Primary Care Provider [phone] Romana Disla PIPELINES MANAGER Primary Care Provider + [phone] Encounter Details Date Type Department Care Team (Late st Contact Info) Description 06/03/2016 Documentation [facility] [place] Neuro-Sleep Disorder [address] [facility] [place], [place] [id number] Richy Upton [address] [facility] [place], [place] [id number] Social History Tobacco Use Types Packs/Day Years Used Date Smoking Tobacco: Every Day Cigarettes 1 23 Alcohol Use Standard Drinks/Week Comments Yes 0 (1 standard drink = 0.6 oz pur e alcohol) Sex and Gender Information Value Date Recorded Sex Assigned at Not on file Legal Sex Male 4:10 PM RETAIL SUPPORT ASSOCIATE Gender Identity Not on file Sexual Orientation Not on file documented as of this encounter Plan of Treatment Not on file documented as of this encounter Visit Diagnoses Not on filedocumented in this encounter Additional Health Concerns Infection Onset Date Last Indicated Resolved Time COVID-19: Pending 03/02/2021 03/02/2021 03/02/2021 9:33 PM RETAIL SUPPORT ASSOCIATE Assessment Noted Time PHQ-9 Depression Total Score: 0 06/01/19 17 8:32 PM CDT A fall risk assessment has been complete d for the patient 05/31/2016 7:31 AM CDT documented as of this encounter Care Teams Educational Aide Relationship Specialty Start Date End Date Ida Zamarripa, PIPELINES MANAGER [address], [address] [place] [address] PCP - General Family Medicine 09/28/16 02/02/21 Mk Velez MD [address] [facility] [place], [address] PCP - General Family Medicine 02/03/21 01/02/23 Romana Disla, JANICE [address] [facility] [address] [place], [address] PCP - General Nurse Practitioner 01/03/23 documented as of this encounter
--- OUTSIDE RECORDS SUMMARY | 2024-10-20 16:15 | XMS_ITS | Encounter Summary ---
Author Organization [facility] Address [address] [place] [address] Phone Care Team Providers Care Cook Helper Dessert Name Role Phone Ida Zamarripa CERTIFIED VETERINARY TECHNICIAN Primary Care Provider [phone] Mk Velez MD Primary Care Provider [phone] Romana Disla CERTIFIED VETERINARY TECHNICIAN Primary Care Provider + [phone] Encounter Details Date Type Department Care Team (Late st Contact Info) Description 06/03/2016 Documentation [facility] [place] Neuro-Sleep Disorder [address] [facility] [place], [place] [id number] Richy Upton [address] [facility] [place], [place] [id number] Social History Tobacco Use Types Packs/Day Years Used Date Smoking Tobacco: Every Day Cigarettes 1 23 Alcohol Use Standard Drinks/Week Comments Yes 0 (1 standard drink = 0.6 oz pur e alcohol) Sex and Gender Information Value Date Recorded Sex Assigned at Not on file Legal Sex Male 4: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 SUPPLY CHAIN LOGISTICS MANAGER Gender Identity Not on file Sexual Orientation Not on file documented as of this encounter Plan of Treatment Not on file documented as of this encounter Visit Diagnoses Not on filedocumented in this encounter Additional Health Concerns Infection Onset Date Last Indicated Resolved Time COVID-19: Pending 03/02/2021 03/02/2021 03/02/2021 9:33 PM SUPPLY CHAIN LOGISTICS MANAGER Assessment Noted Time PHQ-9 Depression Total Score: 0 06/01/19 17 8:32 PM CDT A fall risk assessment has been complete d for the patient 05/31/2016 7:31 AM CDT documented as of this encounter Care Teams Cook Helper Dessert Relationship Specialty Start Date End Date Ida Zamarripa, CERTIFIED VETERINARY TECHNICIAN [address] [place] [address] PCP - General Family Medicine 09/28/16 02/02/21 Mk Velez MD [address] [facility] [place], [address] PCP - General Family Medicine 02/03/21 01/02/23 Romana Disla, JANICE [address] [facility] [address] [place], [address] PCP - General Nurse Practitioner 01/03/23 documented as of this encounter
[2024-10-20 16:57] LABS: Hematocrit 47.6 % (42.0-52.0); Hemoglobin 15.8 g/dL (14.0-18.0); Immature Granulocyte Percent A 0.4 % (0-0.5); Lymphocytes Absolute Auto 2.08 K/mm3 (0.9-3.2); Mean Corpuscular HGB Conc 33.2 g/dl (32-36); Mean Corpuscular Hemoglobin 29.2 pg (26-34); Mean Corpuscular Volume 88.0 fl (80-100); Nucleated Red Blood Cells Absolute Auto 0.000 K/mm3 (0.0-0.012); Nucleated Red Blood Cells Perc 0.0 % (0.0-0.2); Platelet Count Result 263 k/mm3 (150-375); Red Blood Count 5.41 M/mm3 (4.6-6.20); White Blood Count 17.5 K/mm3 (4.5-10.0)
[2024-10-20 17:00] LABS: Add Urine Microscopic? YES; Alanine Aminotransferase 27 U/L (6-50); Albumin Level 4.4 g/dL (3.5-5.1); Alkaline Phosphatase 92 U/L (38-126); Anion Gap 7 mmol/L (4-12); Appearance Urine Clear (Clear); Aspartate Amino Transferase 30 U/L (17-59); Bilirubin,Total 1.1 mg/dL (0.2-1.3); Blood Urea Nitrogen 10 mg/dL (9-20); Calcium 8.8 mg/dL (8.4-10.2); Carbon Dioxide 28 mmol/L (22-30); Chloride 101 mmol/L (98-107); Estimated CRCL calculation 90 ml/min; Estimated Glomerular Filt Rate > 60; Glucose 103 mg/dL (65-110); Glucose Urine UA Negative (Negative); Leukocyte Esterase Ur 3+ LEU/UL (Negative); Nitrate Urine Negative (Negative); Non Pathogenic Casts 0-2; Potassium 4.5 mmol/L (3.4-5.0); Sodium 136 mmol/L (137-145); Specific Grav Ur 1.012 (1.001-1.035); Total Protein 8.0 g/dL (6.3-8.2)
--- NOTE | 2024-10-20 17:23 | ED_ITS ---
HPI - Male Genitourinary General Chief complaint: Urogenital-Male <Elaine Hooker MD - Last Filed: 10/20/24 20:36> Stated complaint: peeing blood <Elaine Hooker MD - Last Filed: 10/20/24 20:36> Time Seen by Provider: 10/20/24 17:19 <Elaine Hooker MD - Last Filed: 10/20/24 20:36> Source: patient <Elaine Hooker MD - Last Filed: 10/20/24 20:36> Mode of arrival: ambulatory <Elaine Hooker MD - Last Filed: 10/20/24 20:36> Limitations: no limitations <Elaine Hooker MD - Last Filed: 10/20/24 20:36> History of Present Illness HPI Narrative: 54 years old white male came to the ED with left flank pain, blood in the urine started last night. Patient report having similar symptoms October 02 and was diagnosed of urinary tract infection and was discharged on Keflex at that time. Patient report warm feeling and possible chills. He denies any nausea or vomiting History of hypertension, hyperlipidemia, appendectomy and tobacco dependent. < Elaine Hooker MD - Last Filed: 10/20/24 20:36> Related Data Allergies/Adverse reactions: Allergies Allergy/AdvReac Type Severity Reaction Status Date / Time No Known Allergies Allergy Verified 10/20/24 16:24 <Elaine Hooker MD - Last Filed: 10/20/24 20:36> Review of Systems 2 Review of Systems: All systems reviewed & are unremarkable except as noted in HPI and below <Elaine Hooker MD - Last Filed: 10/20/24 20:36> Exam 2 Narrative: General appearance: Well-developed, well-nourished Skin: Normal color Head: Normocephalic, nontraumatic Eyes: Clear conjunctiva ENT: Oropharynx normal, ears normal, nose normal Neck: Supple, nontender Chest and respiratory: Airway patent, no respiratory distress, no accessory muscle use Heart: Regular rate/rhythm Abdomen: Soft, left flank tenderness, no organomegaly, quiet bowel sounds Vascular: Normal peripheral pulses, normal capillary refill. Musculoskeletal: Normal range of motion, nontender back Neurologic: Alert and oriented ?3, [employer]CH[employer]ICIAN is normal as tested, no gross motor deficit <Elaine Hooker MD - Last Filed: 10/20/24 20:36> Course Vital Signs Vital signs: Vital Signs Temperature 98.1 F 10/20/24 16:20 Pulse Rate 120 H 10/20/24 16:20 Respiratory Rate 18 10/20/24 16:20 Pulse Oximetry 100 10/20/24 16:20 Oxygen Delivery Room Air 10/20/24 16:20 Temperature 98.1 F 10/20/24 16:20 Pulse Rate 123 H 10/20/24 16:25 Respiratory Rate 18 10/20/24 16:25 Blood Pressure 179/110 H 10/20/24 22:51 Pulse Oximetry 97 10/20/24 22:51 Oxygen Delivery Room Air 10/20/24 16:20 <Elaine Hooker MD - Last Filed: 10/20/24 20:36> Vital Signs Temperature 98.1 F 10/20/24 16:20 Pulse Rate 120 H 10/20/24 16:20 Respiratory Rate 18 10/20/24 16:20 Pulse Oximetry 100 10/20/24 16:20 Oxygen Delivery Room Air 10/20/24 16:20 Temperature 98.1 F 10/20/24 16:20 Pulse Rate 123 H 10/20/24 16:25 Respiratory Rate 18 10/20/24 16:25 Blood Pressure 179/110 H 10/20/24 22:51 Pulse Oximetry 97 10/20/24 22:51 Oxygen Delivery Room Air 10/20/24 16:20 <Nikolas Mesa MD - Last Filed: 10/20/24 22:53> MDM - Male Genitourinary MDM Narrative Medical decision making narrative: Patient presents with left flank pain blood in urine Vital signs showing blood pressure 163/117, heart rate 120 otherwise within normal limit Physical examination showing tenderness left flank area, flushed face Differential diagnosis include kidney stone, urinary tract infection, electrolyte imbalance, dehydration Blood workup today includes CBC, CMP, lipase showed WBC 17.5 otherwise within normal limit Urinalysis showed evidence of infection. Rocephin [address] abdomen and pelvis with IV contrast showed <Elaine Hooker MD - Last Filed: 10/20/24 20:36> Patient presents with left flank pain blood in urine Vital signs showing blood pressure 163/117, heart rate 120 otherwise within normal limit Physical examination showing tenderness left flank area, flushed face Differential diagnosis include kidney stone, urinary tract infection, electrolyte imbalance, dehydration Blood workup today includes CBC, CMP, lipase showed WBC 17.5 otherwise within normal limit Urinalysis showed evidence of infection. Rocephin [address] abdomen and pelvis with IV contrast obtained and currently pending. Bonita: Patient was signed out to me pending CT abdomen pelvis. CT was obtained and bili interpreted by me revealing mild thickening of the bladder wall with which is concerning for cystitis otherwise no acute process. Patient home these findings at bedside. Repeat vital signs noted to be within normal limits with repeat heart rate of 96 beats per minute. Instructed follow-up with urology within the next 3-5 days and return to the ED if any new or worsening symptoms develop. Was provided with strict return precautions. Script for cephalexin was sent to patient's pharmacy to take as prescribed for UTI. Patient was discharged home in stable condition. <Nikolas Mesa MD - Last Filed: 10/20/24 22:53> Differential Diagnosis Differential diagnosis: Likely other (As above) <Elaine Hooker MD - Last Filed: 10/20/24 20:36> Medical Records Attestation: I reviewed the patient's medical records. <Elaine Hooker MD - Last Filed: 10/20/24 20:36> Lab Data Attestation: I reviewed the patient's lab results. <Elaine Hooker MD - Last Filed: 10/20/24 20:36> Result diagrams: 10/20/24 16:36 10/20/24 16:36 <Elaine Hooker MD - Last Filed: 10/20/24 20:36> Labs: Lab Results 10/20/24 Range/Units 16:36 WBC 17.5 H (4.5-10.0) K/mm3 RBC 5.41 (4.6-6.20) M/mm3 Hgb 15.8 (14.0-18.0) g/dL Hct 47.6 (42.0-52.0) % MCV 88.0 (80-100) fl MCH 29.2 (26-34) pg MCHC 33.2 (32-36) g/dl RDW 13.4 (11.5-14.5) % Plt Count 263 (150-375) k/mm3 MPV 10.3 (7.4-10.4) fl Immature Gran % (Auto) 0.4 (0-0.5) % Neut % (Auto) 80.7 H (45.5-73.1) % Lymph % (Auto) 11.9 L (18.3-44.2) % Alpine % (Auto) 6.2 (2.6-8.5) % Eos % (Auto) 0.5 (0-4.4) % Baso % (Auto) 0.3 (0.2-1.2) % Lymph # (Auto) 2.08 (0.9-3.2) K/mm3 Alpine # (Auto) 1.1 H (0.1-0.6) K/mm3 Eos # (Auto) 0.1 (0-0.3) K/mm3 Baso # (Auto) 0.1 (0.0-0.1) K/mm3 Abs Immat Gran (auto) 0.07 H (0.00-0.031) K/mm3 Absolute Neuts (auto) 14.2 H (1.3-6.7) K/mm3 Absolute Nucleated RBC 0.000 (0.0-0.012) K/mm3 Nucleated RBC % 0.0 (0.0-0.2) % Sodium 136 L (137-145) mmol/L Potassium 4.5 (3.4-5.0) mmol/L Chloride 101 (98-107) mmol/L Carbon Dioxide 28 (22-30) mmol/L Anion Gap 7 (4-12) mmol/L BUN 10 (9-20) mg/dL Creatinine 0.89 (0.7-1.3) mg/dL Estim Creat Clear Calc 90 ml/min Estimated GFR > 60 (59 - ) Glucose 103 (65-110) mg/dL Calcium 8.8 (8.4-10.2) mg/dL Total Bilirubin 1.1 (0.2-1.3) mg/dL AST 30 (17-59) U/L ALT 27 (6-50) U/L Alkaline Phosphatase 92 (38-126) U/L Total Protein 8.0 (6.3-8.2) g/dL Albumin 4.4 (3.5-5.1) g/dL Urine Color Yellow (Yellow) Urine Appearance Clear (Clear) Urine pH 7.5 (5.0-9.0) Ur Specific Cuervo 1.012 (1.001-1.035) Urine Protein Negative (Negative) mg/dL Urine Glucose (UA) Negative (Negative) mg/dL Urine Ketones Negative (Negative) mg/dL Ur Blood (Man) Trace (Negative) Urine Nitrate Negative (Negative) Urine Bilirubin Negative (Negative) Urine Urobilinogen 1.0 (<2.0) mg/dL Leukocyte Esterase Rfl 3+ H (Negative) SERVANDO/UL Urine RBC 3-5 H (0-2) /hpf Urine WBC 51-100 H (0-3) /hpf Ur Squamous Epith Cells None seen (Few) /hpf Urine Bacteria 3+ H /hpf Urine Casts 0-2 <Elaine Hooker MD - Last Filed: 10/20/24 20:36> Lab Results 10/20/24 Range/Units 16:36 WBC 17.5 H (4.5-10.0) K/mm3 RBC 5.41 (4.6-6.20) M/mm3 Hgb 15.8 (14.0-18.0) g/dL Hct 47.6 (42.0-52.0) % MCV 88.0 (80-100) fl MCH 29.2 (26-34) pg MCHC 33.2 (32-36) g/dl RDW 13.4 (11.5-14.5) % Plt Count 263 (150-375) k/mm3 MPV 10.3 (7.4-10.4) fl Immature Gran % (Auto) 0.4 (0-0.5) % Neut % (Auto) 80.7 H (45.5-73.1) % Lymph % (Auto) 11.9 L (18.3-44.2) % Alpine % (Auto) 6.2 (2.6-8.5) % Eos % (Auto) 0.5 (0-4.4) % Baso % (Auto) 0.3 (0.2-1.2) % Lymph # (Auto) 2.08 (0.9-3.2) K/mm3 Alpine # (Auto) 1.1 H (0.1-0.6) K/mm3 Eos # (Auto) 0.1 (0-0.3) K/mm3 Baso # (Auto) 0.1 (0.0-0.1) K/mm3 Abs Immat Gran (auto) 0.07 H (0.00-0.031) K/mm3 Absolute Neuts (auto) 14.2 H (1.3-6.7) K/mm3 Absolute Nucleated RBC 0.000 (0.0-0.012) K/mm3 Nucleated RBC % 0.0 (0.0-0.2) % Sodium 136 L (137-145) mmol/L Potassium 4.5 (3.4-5.0) mmol/L Chloride 101 (98-107) mmol/L Carbon Dioxide 28 (22-30) mmol/L Anion Gap 7 (4-12) mmol/L BUN 10 (9-20) mg/dL Creatinine 0.89 (0.7-1.3) mg/dL Estim Creat Clear Calc 90 ml/min Estimated GFR > 60 (59 - ) Glucose 103 (65-110) mg/dL Calcium 8.8 (8.4-10.2) mg/dL Total Bilirubin 1.1 (0.2-1.3) mg/dL AST 30 (17-59) U/L ALT 27 (6-50) U/L Alkaline Phosphatase 92 (38-126) U/L Total Protein 8.0 (6.3-8.2) g/dL Albumin 4.4 (3.5-5.1) g/dL Urine Color Yellow (Yellow) Urine Appearance Clear (Clear) Urine pH 7.5 (5.0-9.0) Ur Specific Cuervo 1.012 (1.001-1.035) Urine Protein Negative (Negative) mg/dL Urine Glucose (UA) Negative (Negative) mg/dL Urine Ketones Negative (Negative) mg/dL Ur Blood (Man) Trace (Negative) Urine Nitrate Negative (Negative) Urine Bilirubin Negative (Negative) Urine Urobilinogen 1.0 (<2.0) mg/dL Leukocyte Esterase Rfl 3+ H (Negative) SERVANDO/UL Urine RBC 3-5 H (0-2) /hpf Urine WBC 51-100 H (0-3) /hpf Ur Squamous Epith Cells None seen (Few) /hpf Urine Bacteria 3+ H /hpf Urine Casts 0-2 <Nikolas Mesa MD - Last Filed: 10/20/24 22:53> Critical Care Time Critical Care Time Critical Care Time: No <Elaine Hooker MD - Last Filed: 10/20/24 20:36> Discharge Plan Discharge Clinical Impression: Urinary tract infection <Elaine Hooker MD - Last Filed: 10/20/24 20:36> Patient Disposition: Home <Elaine Hooker MD - Last Filed: 10/20/24 20:36> Condition: Improved <Elaine Hooker MD - Last Filed: 10/20/24 20:36> Instructions: Antibiotic Form, Urinary Tract Infection in Men (ED) <Elaine Hooker MD - Last Filed: 10/20/24 20:36> Additional Instructions: Please follow-up with urologist to a provided with today within the next 3-5 days. Take the prescribed antibiotic as instructed for urinary tract infection. Return to the ED if any new or worsening symptoms develop. <Elaine Hooker MD - Last Filed: 10/20/24 20:36> Patient Language: Czech <Elaine Hooker MD - Last Filed: 10/20/24 20:36> Prescriptions: New cephalexin 500 mg capsule 500 mg PO Q6H 10 Days Qty: 40 0RF No Action ketorolac 10 mg tablet 10 mg PO Q6H PRN (Reason: pain) Qty: 14 0RF Rx Instructions: maximum total duration of 5 days from all oral, intranasal, or parenteral formulations valsartan 160 mg tablet 160 mg PO DAILY Qty: 14 0RF cephalexin 500 mg capsule 500 mg PO Q6H 7 Days Qty: 28 0RF <Elaine Hooker MD - Last Filed: 10/20/24 20:36> Follow-up/Referrals: Kolton Weeks MD [Physician, Urology] - 3 Days PHYSICIAN,WATCH PARTS INSPECTOR [Non-Staff, Internal Medicine] <Elaine Hooker MD - Last Filed: 10/20/24 20:36> Time of Disposition: 22:51 <Elaine Hooker MD - Last Filed: 10/20/24 20:36> 22:51 <Nikolas Mesa MD - Last Filed: 10/20/24 22:53>
[2024-10-20] MEDS: ONDANSETRON INJ 4 MG/2 ML VIAL IV PUSH (19:15)
[2024-10-20] MEDS: MORPHINE SULFATE (*CRX) 4 MG/ML INJ IV PUSH (19:15)
[2024-10-20] MEDS: cefTRIAXone 1 GM in SODIUM CHLORIDE 0.9% IV 50 ML 100 ML IVPB (19:15)
[2024-10-20] MEDS: KETOROLAC 30 MG/ML VIAL (*BKC) IV PUSH (19:15)
== END 2024-10-20 23:05 | disposition home or self-care (01) ==
PROVIDERS: Emergency Medicine; Emergency Provider Emergency Medicine; PCP Physician Assistant
DX: N39.0 Urinary tract infection, site not specified (principal)
CPT/HCPCS: 36415; 74177; 80053; 81001; 85025; 87077; 87086; 87186; 96365; 96375; 99284; J0696; J1885; J2270; J2405; Q9967